=== PATIENT | female | born 1970 | race Caucasian/White ===

== ENCOUNTER 2020-01-12 20:00 | Inpatient (IN) | payer OTHER ==
[~2020-01-12] VITALS: Ht 157.5 cm; Wt 90.3 kg
[2020-01-12 20:18] VITALS: BP 131/82
[2020-01-12] MEDS: Albuterol/Ipratropium 3ml neb HHN SCH ×4 (20:30→21:23)
[2020-01-12] MEDS ORDERED: Solu-MEDROL 125mg Inj IVP ONE (20:30)
--- NOTE | 2020-01-12 21:08 | Emergency Room Report ---
History of Present Illness General Chief Complaint: Upper Respiratory Illness Source: Patient Present Illness HPI Patient is a 49-year-old female past medical history of COPD states that she smokes 1 pack/day for the past 30 years who presents to the ER complaining of shortness of breath. Patient states that she is always short of breath and has a slight cough due to her history of smoking but that is gotten worse over the past 2 days. She denies any fever or chills. She denies any chest pain. She denies any recent travel. She denies any abdominal pain, nausea or vomiting. Patient states that her cough is wet and has dark sputum. No lower extremity pain or edema. COVID-19 risk:Contact w/high r: No COVID-19 risk:Travel to affect: No Has patient experienced trevino: Yes Coronavirus symptoms experienc: Shortness of Breath, Cough Allergies: Coded Allergies: No Known Allergies (Unverified , 01/12/20) Patient History Social History: Reports: smoking Last Menstrual Period: NA Now: No - 2018 : 8 Para: 4 Reviewed Nursing Documentation: PMH: Agreed; PSxH: Agreed Nursing Documentation-PMH Hx Hypertension: Yes Hx COPD: Yes Hx Neurological Problems: Yes - etoh lism Review of Systems All Other Systems: negative except mentioned in HPI Physical Exam Vital Signs Date Time Temp Pulse Resp B/P (MAP) Pulse Ox O2 Delivery O2 Flow Rate FiO2 01/12/20 20:10 98.2 96 18 131/82 (98) 82 Room Air Sp02 EP Interpretation: reviewed, normal General Appearance: no apparent distress, alert, GCS 15, non-toxic Head: normocephalic, atraumatic Eyes: bilateral eye normal inspection, bilateral eye PERRL ENT: hearing grossly normal, normal pharynx, no angioedema, normal voice Neck: full range of motion, supple/symm/no masses Respiratory: chest non-tender, decreased breath sounds, speaking full sentences Cardiovascular #1: no edema, tachycardia Cardiovascular #2: 2+ carotid (R), 2+ carotid (L), 2+ radial (R), 2+ radial (L) , 2+ dorsalis pedis (R), 2+ dorsalis pedis (L) Gastrointestinal: normal bowel sounds, non tender, soft, non-distended, no guarding, no rebound Rectal: deferred Genitourinary: normal inspection, no CVA tenderness Musculoskeletal: back normal, normal range of motion, calf tenderness, gait/ station normal, non-tender Neurologic: alert, motor strength/tone normal, oriented x3, sensory intact, responsive, speech normal Psychiatric: judgement/insight normal, memory normal, mood/affect normal, no suicidal/homicidal ideation Skin: no rash Lymphatic: no adenopathy Procedures Critical Care Time Critical Care Time Total critical care time: Approximately 40 minutes. Due to a high probability of clinically significant, life threatening deterioration, the patient required my highest level of preparedness to intervene emergently and I personally spent this critical care time directly and personally managing the patient. This critical care time included obtaining a history; examining the patient; pulse oximetry; ordering and review of studies; arranging urgent treatment with development of a management plan; evaluation of patient's response to treatment ; frequent reassessment; and, discussions with other providers.This critical care time was performed to assess and manage the high probability of imminent, life-threatening deterioration that could result in multi-organ failure. It was exclusive of separately billable procedures and treating other patients and teaching time. Please see MDM section and the rest of the note for further information on patient assessment and treatment. Medical Decision Making Diagnostic Impression: Primary Impression: COPD (chronic obstructive pulmonary disease) Additional Impressions: CHF (congestive heart failure) Pneumonia Hypoxia Respiratory distress ER Course Patient presents hypoxic. Patient placed on supplemental oxygen. Patient given nebulizer treatments as well as IV steroids. Patient's chest x-ray consistent with fluid overload from congestive heart failure. Unclear if there is underlying pneumonia as well. Patient given Lasix 40 mg IV. Patient cultured and started on azithromycin as well as ceftriaxone for community- acquired pneumonia. Laboratory Tests Test 01/12/20 20:39 01/12/20 21:30 White Blood Count 21.1 K/UL (4.8-10.8) H Red Blood Count 4.51 M/UL (4.20-5.40) Hemoglobin 12.7 G/DL (12.0-16.0) Hematocrit 40.2 % (37.0-47.0) Mean Corpuscular Volume 89 FL (80-99) Mean Corpuscular Hemoglobin 28.2 PG (27.0-31.0) Mean Corpuscular Hemoglobin Concent 31.7 G/DL (32.0-36.0) L Red Cell Distribution Width 15.2 % (11.6-14.8) H Platelet Count 387 K/UL (150-450) Mean Platelet Volume 7.4 FL (6.5-10.1) Neutrophils (%) (Auto) % (45.0-75.0) Lymphocytes (%) (Auto) % (20.0-45.0) Monocytes (%) (Auto) % (1.0-10.0) Eosinophils (%) (Auto) % (0.0-3.0) Basophils (%) (Auto) % (0.0-2.0) Neutrophils % (Manual) Pending Lymphocytes % (Manual) Pending Platelet Estimate Pending Platelet Morphology Pending Sodium Level 142 MMOL/L (136-145) Potassium Level 4.2 MMOL/L (3.5-5.1) Chloride Level 102 MMOL/L (98-107) Carbon Dioxide Level 30 MMOL/L (21-32) Anion Gap 10 mmol/L (5-15) Blood Urea Nitrogen 13 mg/dL (7-18) Creatinine 0.7 MG/DL (0.55-1.30) Estimated Glomerular Filtration Rate > 60 mL/min (>60) Glucose Level 98 MG/DL (74-106) Lactic Acid Level 1.90 mmol/L (0.4-2.0) Calcium Level 8.9 MG/DL (8.5-10.1) Magnesium Level 1.6 MG/DL (1.8-2.4) L Total Bilirubin 0.2 MG/DL (0.2-1.0) Aspartate Amino Transferase (AST) 31 U/L (15-37) Alanine Aminotransferase (ALT) 53 U/L (12-78) Alkaline Phosphatase 33 U/L (46-116) L Creatine Kinase MB 3.6 NG/ML (0.0-3.6) Troponin I 0.047 ng/mL (0.000-0.056) Pro-B-Type Natriuretic Peptide 4434 pg/mL (0-125) H Total Protein 7.1 G/DL (6.4-8.2) Albumin 3.3 G/DL (3.4-5.0) L Globulin 3.8 g/dL Albumin/Globulin Ratio 0.9 (1.0-2.7) L Arterial Blood pH 7.360 (7.350-7.450) Arterial Blood Partial Pressure CO2 48.3 mmHg (35.0-45.0) H Arterial Blood Partial Pressure O2 95.6 mmHg (75.0-100.0) Arterial Blood HCO3 27.0 mmol/L (22.0-26.0) H Arterial Blood Oxygen Saturation 96.8 % (95-100) Arterial Blood Base Excess 1.1 (-2-2) Eleazar Test Positive EKG Diagnostic Results EKG Time: 20:36 EP Interpretation: MD Kelly Rate: normal Rhythm: NSR ST Segments: no acute changes ASA given to the pt in ED: No Rhythm Strip Diag. Results Rhythm Strip Time: 21:11 EP Interpretation: yes - MD Kelly Rate: 88 Rhythm: NSR, no PVC's, no ectopy Last Vital Signs Date Time Temp Pulse Resp B/P (MAP) Pulse Ox O2 Delivery O2 Flow Rate FiO2 01/12/20 20:10 98.2 96 18 131/82 (98) 82 Room Air Disposition: ADMITTED INPATIENT Condition: Critical Physician Consult: Dr. Montilla to admit to Telemetry Referrals: Cristopher Montilla MD (PCP) Radha Mendoza M.D. Jan 12, 2020 21:08
[2020-01-12 21:22] LABS: HEMATOCRIT 40.2 % (37.0-47.0); HEMOGLOBIN 12.7 G/DL (12.0-16.0); MEAN CORPUSCULAR VOLUME 89 FL (80-99); PLATELET COUNT 387 K/UL (150-450); RED BLOOD COUNT 4.51 M/UL (4.20-5.40); RED CELL DISTRIBUTION WIDTH 15.2 % (11.6-14.8); WHITE BLOOD COUNT 21.1 K/UL (4.8-10.8)
[2020-01-12 21:33] LABS: ANION GAP 10 mmol/L (5-15); BLOOD UREA NITROGEN 13 mg/dL (7-18); CALCIUM 8.9 MG/DL (8.5-10.1); CARBON DIOXIDE 30 MMOL/L (21-32); CHLORIDE 102 MMOL/L (98-107); CREATININE 0.7 MG/DL (0.55-1.30); POTASSIUM 4.2 MMOL/L (3.5-5.1); SODIUM 142 MMOL/L (136-145)
[2020-01-12 21:39] LABS: ALANINE AMINOTRANSFERASE 53 U/L (12-78); ALBUMIN 3.3 G/DL (3.4-5.0); ALBUMIN/GLOBULIN RATIO 0.9 (1.0-2.7); ALKALINE PHOSPHATASE 33 U/L (46-116); ASPARTATE AMINO TRANSFERASE 31 U/L (15-37); BILIRUBIN,TOTAL 0.2 MG/DL (0.2-1.0); CKMB 3.6 NG/ML (0.0-3.6)
[2020-01-12] MEDS ORDERED: Azithromycin 500 MG in D5W 275 ML IVPB ONE (21:45)
[2020-01-12] MEDS ORDERED: cefTRIAXone 2 GM in NS 55 ML IVPB ONE (21:45)
[2020-01-12] MEDS ORDERED: GABAPENTIN300 MG ORAL (22:04)
[2020-01-12] MEDS ORDERED: TRAZODONE HCL300 MG ORAL (22:04)
[2020-01-12] MEDS ORDERED: HYDROXYZIN IM (22:04)
[2020-01-12] MEDS ORDERED: ZOFRAN ODT8 MG ORAL (22:04)
[2020-01-12] MEDS ORDERED: ALBUTEROL0.63 MG/3 HHN (22:04)
[2020-01-12] MEDS ORDERED: ROBAXIN100 MG/1 M IJ (22:04)
[2020-01-12 23:18] VITALS: BP 131/82
[2020-01-13] VITALS (7 sets, daily range): BP systolic 127–145; BP diastolic 73–96
[2020-01-13 02:58] LABS: APPEARANCE,URINE CLEAR; BILIRUBIN, URINE NEGATIVE (NEGATIVE); COLOR,URINE PALE YELLOW; GLUCOSE, URINE (UA) NEGATIVE (NEGATIVE); KETONES,URINE NEGATIVE (NEGATIVE); LEUKOCYTE ESTERASE ,URINE NEGATIVE (NEGATIVE); NITRITE,URINE NEGATIVE (NEGATIVE); PH,URINE 5 (4.5-8.0); PROTEIN,URINE 2+ (NEGATIVE); UROBILINOGEN,URINE NORMAL MG/DL (0.0-1.0)
[2020-01-13] MEDS ORDERED: Albuterol ud Inhalation HHN PRN ×2 (06:54→15:35)
[2020-01-13] MEDS ORDERED: Albuterol/Ipratropium 3ml neb ONE (06:56)
[2020-01-13] MEDS ORDERED: Heparin 5000 units/ml inj SUBQ SCH (09:00)
[2020-01-13] MEDS ORDERED: Guaifenesin/DM 10ml syrup ORAL PRN ×2 (09:15→15:36)
--- NOTE | 2020-01-13 09:45 | History and Physical Report ---
DATE OF ADMISSION: 01/13/2020 REASON FOR ADMISSION: COPD exacerbation. HISTORY OF PRESENT ILLNESS: This is a 49-year-old female, recently seen in my office for the first time. The patient does smoke at least one pack per day and does have a longstanding history of alcoholism. The patient was seen and evaluated and noted to have moderate COPD with pulmonary hypertension. The patient notes increasing shortness of breath, increasing respiratory distress, and denies any fevers or chills. Denies any sputum production. Denies any recent travel. The patient has been in rehabilitation for alcoholism and now noted worsening shortness of breath. The patient seen and evaluated in the emergency room. Vital signs noted and reviewed. The patient with low oxygen saturation on arrival 82%. The patient is on no oxygen at home and was just started on Trelegy. The patient's care discussed and reviewed. The patient was seen by the emergency room doctor and now admitted for further care and management. PAST MEDICAL HISTORY: Noted for recently diagnosed COPD, history of alcohol use, history of longstanding smoking, and history of pulmonary hypertension. MEDICATIONS: Reviewed. ALLERGIES: Reviewed. SOCIAL HISTORY: Longstanding history of smoking and drinking as described. The patient is from out of [facility]. REVIEW OF SYSTEMS: All 10 points reviewed and otherwise negative. FAMILY HISTORY: Otherwise noncontributory to the above. PHYSICAL EXAMINATION: GENERAL: A well-developed female, obese. VITAL SIGNS: Blood pressure 121/82, pulse 96, respiratory rate 18, and temperature 98.2. HEENT: Negative. Extraocular movements are grossly intact. NECK: Supple. LUNGS: With scattered wheezes and rhonchi. CARDIAC: S1, S2. Currently, regular rate and rhythm. Previously was tachycardic. ABDOMEN: Soft, nontender. EXTREMITIES: No edema. LABORATORY DATA: Reviewed. White cell count 21, platelets 387. Chemistries essentially negative. BNP 4434. Troponin negative. Arterial blood gas 7.36/28/ 95/27. IMPRESSION: COPD with acute exacerbation, pulmonary edema, probable sleep apnea, evidence of hypercapnia, hypoxemia, obesity. RECOMMENDATIONS: Supportive care. IV steroids. IV Lasix. Nebulized therapy. Advair therapy. DVT prophylaxis. Follow clinically and monitor x-ray and exam. Follow up natriuretic peptide and discharge when the patient improves with outpatient management. Cristopher Montilla M.D. DR: SHASHANK JOB#: [id number] CC: TRAY
[2020-01-13] MEDS ORDERED: cefTRIAXone 1gm/D5W 55ml IVPB SCH ×2 (11:00)
[2020-01-13] MEDS: Albuterol ud Inhalation HHN SCH ×4 (11:04→23:00)
--- NOTE | 2020-01-13 12:05 | Diagnostic Imaging Report ---
Indication: Dyspnea Comparison: None A single view chest radiograph was obtained. Findings: Interstitial opacities with prominent vascularity and borderline cardiomegaly demonstrated. Bones are unremarkable. IMPRESSION: CHF suspected. Would also consider interstitial pneumonitis
[2020-01-13] MEDS: Wixela 250/50 Inhaler - 60 dose INH SCH (18:00)
[2020-01-13] MEDS ORDERED: Wixela 250/50 Inhaler - 60 dose INH SCH (18:00)
[2020-01-13] MEDS ORDERED: Solu-MEDROL 125mg Inj IVP SCH (21:00)
[2020-01-13] MEDS: Solu-MEDROL 125mg Inj IVP SCH (21:35)
[2020-01-13] MEDS: Heparin 5000 units/ml inj SUBQ SCH (21:42)
[2020-01-14] MEDS: Albuterol ud Inhalation HHN SCH ×2 (03:00→07:45)
[2020-01-14 04:00] VITALS: BP 137/76
[2020-01-14 06:34] LABS: HEMATOCRIT 42.8 % (37.0-47.0); HEMOGLOBIN 13.9 G/DL (12.0-16.0); MEAN CORPUSCULAR VOLUME 86 FL (80-99); PLATELET COUNT 417 K/UL (150-450); RED BLOOD COUNT 4.98 M/UL (4.20-5.40); RED CELL DISTRIBUTION WIDTH 13.7 % (11.6-14.8); WHITE BLOOD COUNT 16.1 K/UL (4.8-10.8)
[2020-01-14 07:08] LABS: ANION GAP 7 mmol/L (5-15); BLOOD UREA NITROGEN 13 mg/dL (7-18); CALCIUM 9.1 MG/DL (8.5-10.1); CARBON DIOXIDE 34 MMOL/L (21-32); CHLORIDE 104 MMOL/L (98-107); CREATININE 0.6 MG/DL (0.55-1.30); POTASSIUM 4.6 MMOL/L (3.5-5.1); SODIUM 145 MMOL/L (136-145)
[2020-01-14] MEDS: Wixela 250/50 Inhaler - 60 dose INH SCH (07:46)
[2020-01-14 08:00] VITALS: BP 124/87
--- NOTE | 2020-01-14 08:48 | General Progress Note ---
Assessment/Plan Assessment/Plan: COPD with acute exacerbation CHF, new onset ETOH+ pulmonary hypertension smoker acute bronchitis PLAN lasix medrol dose carol zpak Trelegy albuterol prn now off oxygen and stable discussed concerns if symptoms worsen, return to ER immediately no smoking impression, plan, and exam edited and reviewed in detail care discussed with RN Subjective Allergies: Coded Allergies: No Known Allergies (Unverified , 01/12/20) Subjective much improved off oxygen no sob or cough emotional Objective Last 24 Hour Vital Signs Date Time Temp Pulse Resp B/P (MAP) Pulse Ox O2 Delivery O2 Flow Rate FiO2 01/14/20 08:00 99.3 83 20 124/87 (99) 93 01/14/20 07:51 88 20 98 Room Air 21 81 20 98 01/14/20 04:00 98.0 101 19 137/76 (96) 93 01/13/20 23:27 98.3 105 19 130/73 (92) 91 01/13/20 21:00 Room Air 01/13/20 20:00 97.8 92 19 139/81 (100) 92 01/13/20 19:40 95 18 93 Room Air 21 01/13/20 19:36 97 17 98 Room Air 21 95 17 93 01/13/20 16:00 99.5 91 20 134/96 (109) 95 01/13/20 15:25 102 16 99 Room Air 21 103 18 92 01/13/20 14:00 Room Air 01/13/20 12:00 99.5 103 20 130/86 (101) 94 01/13/20 11:04 96 20 98 Room Air 21 94 20 92 01/13/20 09:02 97 01/13/20 09:00 Room Air Intake and Output 01/13/20 01/14/20 19:00 07:00 Intake Total 545 ml 200 ml Balance 545 ml 200 ml Intake Oral 490 ml 200 ml IV Total 55 ml # Voids 3 1 Laboratory Tests 01/14/20 05:35: White Blood Count 16.1H, Red Blood Count 4.98, Hemoglobin 13.9, Hematocrit 42.8 , Mean Corpuscular Volume 86, Mean Corpuscular Hemoglobin 28.0, Mean Corpuscular Hemoglobin Concent 32.5, Red Cell Distribution Width 13.7, Platelet Count 417, Mean Platelet Volume 6.6, Neutrophils (%) (Auto) , Lymphocytes (%) ( Auto) , Monocytes (%) (Auto) , Eosinophils (%) (Auto) , Basophils (%) (Auto) , Neutrophils % (Manual) [Pending], Lymphocytes % (Manual) [Pending], Platelet Estimate [Pending], Platelet Morphology [Pending], Sodium Level 145, Potassium Level 4.6, Chloride Level 104, Carbon Dioxide Level 34H, Anion Gap 7, Blood Urea Nitrogen 13, Creatinine 0.6, Estimat Glomerular Filtration Rate > 60, Glucose Level 174H, Calcium Level 9.1, Pro-B-Type Natriuretic Peptide 908H, Digoxin Level < 0.2L Height (Feet): 5 Height (Inches): 2.00 Weight (Pounds): 199 Objective WDWN NAD clear breath sounds bilaterally without rhonchi or wheeze [id number] without MRG NABS nontender no HSM no CCE nonfocal Cristopher Montilla MD Jan 14, 2020 08:48
[2020-01-14] MEDS: Heparin 5000 units/ml inj SUBQ SCH (09:00)
[2020-01-14] MEDS ORDERED: Azithromycin 250mg tab ORAL SCH ×2 (09:00)
[2020-01-14] MEDS: Solu-MEDROL 125mg Inj IVP SCH (09:14)
[2020-01-14] MEDS ORDERED: cefTRIAXone 1 GM in D5W 55 ML IVPB SCH (11:00)
--- NOTE | 2020-01-16 10:10 | Discharge Summary ---
Discharge Summary Discharge Summary _ DATE OF ADMISSION: 01/13/2020 DATE OF DISCHARGE: 01/14/2020 DISCHARGED BY: Dr. Adilia Montilla [facility] HOSPITAL COURSE: Patient is a 49-year-old female, who initially presented as outpatient. Patient smokes at least 1 pack/day and has a longstanding history of alcoholism. The patient was evaluated and was noted to have moderate COPD with pulmonary hypertension. Patient noted increasing shortness of breath, increasing respiratory distress. He denied fever or chills. Denied any sputum production. Denied any recent travel. The patient has been in rehabilitation for alcoholism and noted worsening shortness of breath. Upon evaluation at ED, he was saturating 82% on room air. He was placed on supplemental O2. He was given nebulizer treatment. Blood work showed leukocytosis with WBC count of 21. Hemoglobin and hematocrit were stable. Electrolytes were normal. Troponin negative. proBNP was 4434. ABG showed hypercapnia. Chest x-ray showed fluid overload from CHF. Unclear if there is underlying pneumonia. Patient was given 40 mg of IV Lasix. She was pancultured and was started on azithromycin and ceftriaxone. She was given IV Solu-Medrol. Influenza a and B screening negative. She was then admitted for acute COPD exacerbation, pulmonary edema, probable sleep apnea with evidence of hypercapnia, hypoxemia and obesity. She was admitted to telemetry. She was given pulmonary support. She was placed on nebulizer treatment. She was given IV Lasix. She was given IV Solu- Medrol. She was counseled against smoking cessation. The following day, leukocytosis down trended. proBNP went down to 908. She was breathing better and was saturating well on room air. Patient was cleared for discharge on Medrol Dosepak and azithromycin. Continue Trelegy. ER precautions given. FINAL DIAGNOSES: Acute COPD exacerbation CHF, new onset Alcoholism Pulmonary hypertension Smoker Acute bronchitis DISPOSITION: Patient was discharged home. DISCHARGE MEDICATIONS: Refer to Discharge Medication List. I have been assigned to complete a discharge summary on this account, I was not involved with the patient's management.--BRIGHT Ferrara Jacqueline Robles NP Jan 16, 2020 10:10
== END 2020-01-14 10:55 | disposition home or self-care (01) | DRG 190 ==
LOC: EMR 20:33 → EDBEDREQ 01-13 05:18 → 2E 01-13 05:31 → 3E 01-13 13:31
DX: J44.1 Chronic obstructive pulmonary disease with (acute) exacerbation (principal); J18.9 Pneumonia, unspecified organism; R09.02 Hypoxemia; F10.20 Alcohol dependence, uncomplicated; I27.20 Pulmonary hypertension, unspecified; I50.9 Heart failure, unspecified; J20.9 Acute bronchitis, unspecified
CPT/HCPCS: 36415; 36600; 71045; 80048; 80053; 80162; 81003; 82553; 82803; 83605; 83735; 83880; 84484; 85007; 85025; 85379; 85610; 85730; 86710; 87040; 93005; 94640; 94664; 96365; 96368; 96375; 99291; J7620